=== PATIENT | female | born 1995 | race Caucasian/White ===

== ENCOUNTER 2018-06-29 21:17 | Emergency (ER) | payer MEDICAID ==
[2018-06-29] MEDS ORDERED: Sodium Chloride 0.9% 1,000 ML IV ONE (22:37)
[2018-06-29] MEDS ORDERED: Ondansetron 4 MG/2 ML SDV IVPUSH ONE (22:37)
--- NOTE | 2018-06-29 22:38 | EDM.PDOC ---
ED HPI GENERAL MEDICAL PROBLEM - General Chief Complaint: MACHINE MAINTENANCE MECHANIC Problem Stated Complaint: PT 17 WKS AND VOMITING Time Seen by Provider: 06/29/18 22:38 Source of Information: Reports: Patient - History of Present Illness INITIAL COMMENTS - FREE TEXT/NARRATIVE: HISTORY AND PHYSICAL: History of present illness: [Patient follows with Dr. Silvia mitchell, her next appointment is next week on the She has had been vomiting over the last week and states she is unable to keep liquids down there is concerned she may be losing weight she also follows in [place] She has nausea but she is able to keep down ice water at this time no fever chills sweats no chest pain shortness breath headache dizziness palpitation no bowel or urine symptoms ] Patient denies low back pain bleeding spotting or vaginal discharge, she was treated for Chlamydia he she is recently Review of systems: As per history of present illness and below otherwise all systems reviewed and negative. Past medical history: As per history of present illness and as reviewed below otherwise noncontributory. Surgical history: As per history of present illness and as reviewed below otherwise noncontributory. Social history: No reported history of drug or alcohol abuse. Family history: As per history of present illness and as reviewed below otherwise noncontributory. Physical exam: HEENT: Atraumatic, normocephalic, pupils reactive, negative for conjunctival pallor or scleral icterus, mucous membranes moist, throat clear, neck supple, nontender, trachea midline. Lungs: Clear to auscultation, breath sounds equal bilaterally, chest nontender. Heart: S1S2, regular, negative for clicks, rubs, or JVD. Abdomen: Soft, nondistended, nontender. Negative for masses or hepatosplenomegaly. Negative for costovertebral tenderness. Pelvis: Stable nontender. Genitourinary: Deferred. Rectal: Deferred. Extremities: Atraumatic, negative for cords or calf pain. Neurovascular unremarkable. Neuro: Awake, alert, oriented. Cranial nerves II through XII unremarkable. Cerebellum unremarkable. Motor and sensory unremarkable throughout. Exam nonfocal. Diagnostics: [UA ] Therapeutics: [Normal saline Zofran ]GI cocktail Impression: [] 17 weeks nausea/vomiting Definitive disposition and diagnosis as appropriate pending reevaluation and review of above. 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, , Therapeutic Psychiatric History: Reports: Anxiety - Infectious Disease History Infectious Disease History: Reports: Chicken Pox Social & Family History - Tobacco Use Smoking Status *Q: Never Smoker - Caffeine Use Caffeine Use: Reports: None - Recreational Drug Use Recreational Drug Use: No ED ROS GENERAL - Review of Systems Review Of Systems: See Below ED EXAM, GENERAL - Physical Exam Exam: See Below Course - Vital Signs Last Recorded V/S: Last Vital Signs Temp 96.8 F 06/29/18 21:55 Pulse 134 H 06/29/18 21:55 Resp 18 06/29/18 21:55 BP 148/61 H 06/29/18 21:55 Pulse Ox 94 L 06/29/18 21:55 - Orders/Labs/Meds Orders: Active Orders 24 hr Category Date Time Status UA W/MICROSCOPIC [URIN] Stat Lab 06/29/18 22:37 Ordered Sodium Chloride 0.9% [Normal Saline] 1,000 ml Med 06/29/18 22:37 Active IV STAT Medication Orders Sodium Chloride (Normal Saline) 1,000 mls @ 999 mls/hr IV STAT ONE Stop: 06/29/18 23:37 Meds: Medications Generic Name Dose Route Start Last Admin Trade Name Freq PRN Reason Stop Dose Admin Sodium Chloride 1,000 mls @ 999 mls/hr 06/29/18 22:37 Normal Saline IV 06/29/18 23:37 STAT ONE Discontinued Medications Generic Name Dose Route Start Last Admin Trade Name Freq PRN Reason Stop Dose Admin Al Hydroxide/Mg Hydroxide 15 0 ml 06/29/18 22:50 ml/ Metoclopramide HCl 5 mg/ PO 06/29/18 22:51 Lidocaine HCl 5 ml ONETIME ONE Ondansetron HCl 8 mg 06/29/18 22:37 Zofran IVPUSH 06/29/18 22:38 ONETIME ONE Departure - Departure Time of Disposition: 22:59 Disposition: Home, Self-Care 01 Condition: Good Clinical Impression: Vomiting during - Discharge Information Referrals: PCP,None [Primary Care Provider] - Forms: ED Department Discharge Additional Instructions: The following information is given to patients seen in the emergency department who are being discharged to home. This information is to outline your options for follow-up care. We provide all patients seen in our emergency department with a follow-up referral. The need for follow-up, as well as the timing and circumstances, are variable depending upon the specifics of your emergency department visit. If you don't have a primary care physician on staff, we will provide you with a referral. We always advise you to contact your personal physician following an emergency department visit to inform them of the circumstance of the visit and for follow-up with them and/or the need for any referrals to a consulting specialist. The emergency department will also refer you to a specialist when appropriate. This referral assures that you have the opportunity for follow-up care with a specialist. All of these measure are taken in an effort to provide you with optimal care, which includes your follow-up. Under all circumstances we always encourage you to contact your private physician who remains a resource for coordinating your care. When calling for follow-up care, please make the office aware that this follow-up is from your recent emergency room visit. If for any reason you are refused follow-up, please contact the [facility] emergency department at and asked to speak to the emergency department charge nurse. - My Orders Last 24 Hours: My Active Orders 06/29/18 22:37 UA W/MICROSCOPIC [URIN] Stat Sodium Chloride 0.9% [Normal Saline] 1,000 ml IV STAT - Assessment/Plan Last 24 Hours: My Active Orders 06/29/18 22:37 UA W/MICROSCOPIC [URIN] Stat Sodium Chloride 0.9% [Normal Saline] 1,000 ml IV STAT
[2018-06-29] MEDS ORDERED: Alum Hydrox/Mag Hydrox/Simeth 15 ML, Metoclopramide 5 MG, Lidocaine 2% 5 ML PO ONE ×3 (22:50)
[2018-06-29] MEDS ORDERED: Metoclopramide 10 MG/2 ML SDV ONE (23:06)
== END 2018-06-30 00:40 | disposition home or self-care (01) ==
LOC: MW.ED 21:17
DX: O21.9 Vomiting of pregnancy, unspecified (principal); Z3A.17 17 weeks gestation of pregnancy; Z79.899 Other long term (current) drug therapy
CPT/HCPCS: 96361; 96374; 99283; A9270; J2405; J7040

== ENCOUNTER 2018-10-23 18:09 | Emergency (ER) | payer MEDICAID ==
--- NOTE | 2018-10-23 18:21 | EDM.PDOC ---
ED HPI GENERAL MEDICAL PROBLEM - General Chief Complaint: Gastrointestinal Problem Stated Complaint: VOMTTING Time Seen by Provider: 10/23/18 18:20 Source of Information: Reports: Patient History Limitations: Reports: No Limitations - History of Present Illness INITIAL COMMENTS - FREE TEXT/NARRATIVE: HISTORY AND PHYSICAL: History of present illness: Patient is a 23-year-old female who presents to the emergency room with complaints of nausea, vomiting and fatigue in . Patient states she was diagnosed with a UTI last Thursday (10/15/18) but has not yet filled her antibiotic. She states she has had nausea and vomiting which approximately 1 week ago. Mom is concerned as she has been complaining of fatigue and generally not feeling well over the weekend. Patient denies any fever, chills, headache, change in vision, syncope or near syncope. Denies any chest pain, back pain, shortness of breath or cough. Denies any abdominal pain, pelvic pain, vaginal bleeding/discharge, diarrhea, constipation or dysuria. Has not noted any blood in urine or stool. Patient has been eating and drinking appropriately. , P:0. Unsure of LMP end of February/early March. She is currently 34 weeks (per medical record). Dr Swanson is primary OBGYN Review of systems: As per history of present illness and below otherwise all systems reviewed and negative. Past medical history: As per history of present illness and as reviewed below otherwise noncontributory. Surgical history: As per history of present illness and as reviewed below otherwise noncontributory. Social history: See social history for further information Family history: As per history of present illness and as reviewed below otherwise noncontributory. Physical exam: General: Well-developed and well-nourished 23-year-old female. Alert and oriented. Appears drowsy, but interacts appropriately. Nontoxic appearing and in no acute distress. HEENT: Atraumatic, normocephalic, pupils equal and reactive bilaterally, negative for conjunctival pallor or scleral icterus, mucous membranes moist, TMs normal bilaterally, throat clear, neck supple, nontender, trachea midline. No drooling or trismus noted. No meningeal signs. No hot potato voice noted. Lungs: Clear to auscultation, breath sounds equal bilaterally, chest nontender. Heart: S1S2, regular rate and rhythm without overt murmur Abdomen: Soft, abdomen, nontender. Negative for costovertebral tenderness. Pelvis: Stable nontender. Genitourinary: Deferred. Rectal: Deferred. Skin: Intact, warm, dry. No lesions or rashes noted. Extremities: Atraumatic, moves all extremities per self without difficulty or deficits, negative for cords or calf pain. Neurovascular unremarkable. Neuro: Awake, alert, oriented. Cranial nerves II through XII unremarkable. Cerebellum unremarkable. Motor and sensory unremarkable throughout. Exam nonfocal. Notes: 10/08/2018: Ultrasound shows a single living IUP Today's FHT 140-150's. Initially upon the triage assessment the patient stated she was but did not state how far along she was. At the end of the evaluation and digging through medical records shows she is approximately 34 weeks . We'll have the patient go to OB for further evaluation and management of her concerns and complaints today. Her physical examination is within normal limits and vital signs are stable. OB is aware that labs have been drawn; results are pending. Diagnostics: CBC, CMP, UA Therapeutics: IV fluids, Zofran Impression: Nausea and Vomiting in Plan: To OB for further evaluation and management Definitive disposition and diagnosis as appropriate pending reevaluation and review of above. 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 ED EXAM, GI/ABD - Physical Exam Exam: See Below (See dictation) Course - Vital Signs Last Recorded V/S: Last Vital Signs Temp 97.6 F 10/23/18 18:31 Pulse 118 H 10/23/18 19:10 Resp 20 10/23/18 19:10 BP 112/68 10/23/18 19:10 Pulse Ox 95 10/23/18 19:10 - Orders/Labs/Meds Orders: Active Orders 24 hr Category Date Time Status Heart Tones [ Heart Rate] [RC] Click to Edit Care 10/23/18 18:22 Active DRUG SCREEN, URINE [URCHEM] Stat Lab 10/23/18 18:38 Ordered UA RFX BRIDGER AND CULT IF INDIC [URIN] Stat Lab 10/23/18 18:22 Ordered Sodium Chloride 0.9% with KCl [Normal Saline with 40 Med 10/23/18 20:15 Active mEq KCl] 1,000 ml IV ASDIRECTED Medication Orders Potassium Chloride/Sodium Chloride (Normal Saline With 40 Meq Kcl) 1,000 mls @ 250 mls/hr IV ASDIRECTED IZA Labs: Laboratory Tests 10/23/18 10/23/18 10/23/18 Range/Units 18:45 18:45 19:00 WBC 7.72 (4.0-11.0) K/uL RBC 4.32 (4.30-5.90) M/uL Hgb 13.8 (12.0-16.0) g/dL Hct 39.7 (36.0-46.0) % MCV 91.9 (80.0-98.0) fL MCH 31.9 (27.0-32.0) pg MCHC 34.8 (31.0-37.0) g/dL RDW Std Deviation 44.5 (28.0-62.0) fl RDW Coeff of Dilcia 13 (11.0-15.0) % Plt Count 354 (150-400) K/uL MPV 11.30 (7.40-12.00) fL Neut % (Auto) 74.1 (48.0-80.0) % Lymph % (Auto) 13.9 L (16.0-40.0) % [place] % (Auto) 11.9 (0.0-15.0) % Eos % (Auto) 0.0 (0.0-7.0) % Baso % (Auto) 0.1 (0.0-1.5) % Neut # (Auto) 5.7 (1.4-5.7) K/uL Lymph # (Auto) 1.1 (0.6-2.4) K/uL [place] # (Auto) 0.9 H (0.0-0.8) K/uL Eos # (Auto) 0.0 (0.0-0.7) K/uL Baso # (Auto) 0.0 (0.0-0.1) K/uL Nucleated RBC % 0.0 /100WBC Nucleated RBCs # 0 K/uL Lactate (0.20-2.00) mmol/L Sodium 130 L (136-145) mmol/L Potassium 1.8 L* (3.5-5.1) mmol/L Chloride 74 L (98-107) mmol/L Carbon Dioxide 43.4 H (21.0-32.0) mmol/L BUN 35 H (7.0-18.0) mg/dL Creatinine 3.1 H (0.6-1.0) mg/dL Est Cr Clr Drug Dosing TNP Estimated GFR (MDRD) 18.8 ml/min Glucose 125 H (74-106) mg/dL Calcium 11.0 H (8.5-10.1) mg/dL Total Bilirubin 1.6 H (0.2-1.0) mg/dL AST 212 H (15-37) IU/L ALT 269 H (14-63) IU/L Alkaline Phosphatase 164 H (46-116) U/L Total Protein 8.0 (6.4-8.2) g/dL Albumin 2.9 L (3.4-5.0) g/dL Globulin 5.1 H (2.6-4.0) g/dL Albumin/Globulin Ratio 0.6 L (0.9-1.6) Meds: Medications Generic Name Dose Route Start Last Admin Trade Name Freq PRN Reason Stop Dose Admin Potassium Chloride/Sodium Chloride 1,000 mls @ 250 mls/hr 10/23/18 20:15 Normal Saline With 40 Meq Kcl IV ASDIRECTED IZA Discontinued Medications Generic Name Dose Route Start Last Admin Trade Name Freq PRN Reason Stop Dose Admin Sodium Chloride 1,000 mls @ 999 mls/hr 10/23/18 18:22 10/23/18 18:51 Normal Saline IV 10/23/18 19:22 999 mls/hr STAT ONE Administration Ondansetron HCl 4 mg 10/23/18 18:22 10/23/18 18:51 Zofran IVPUSH 10/23/18 18:23 4 mg ONETIME ONE Administration Departure - Departure Time of Disposition: 18:35 Disposition: Still A Patient 30 Clinical Impression: Vomiting during - Discharge Information Referrals: PCP,None [Primary Care Provider] - Forms: ED Department Discharge - My Orders Last 24 Hours: My Active Orders 10/23/18 18:22 Heart Tones [ Heart Rate] [RC] Click to Edit UA RFX BRIDGER AND CULT IF INDIC [URIN] Stat 10/23/18 18:38 DRUG SCREEN, URINE [URCHEM] Stat - Assessment/Plan Last 24 Hours: My Active Orders 10/23/18 18:22 Heart Tones [ Heart Rate] [RC] Click to Edit UA RFX BRIDGER AND CULT IF INDIC [URIN] Stat 10/23/18 18:38 DRUG SCREEN, URINE [URCHEM] Stat
[2018-10-23] MEDS ORDERED: Ondansetron 4 MG/2 ML SDV IVPUSH ONE (18:22)
[2018-10-23] MEDS ORDERED: Sodium Chloride 0.9% 1,000 ML IV ONE (18:22)
[2018-10-23 19:18] LABS: CHLORIDE,CL 74 mmol/L (98-107); SODIUM,NA 130 mmol/L (136-145)
[2018-10-23] MEDS ORDERED: Sodium Chloride 0.9% with KCl 1,000 ML IV SCH (20:15)
== END 2018-10-23 19:15 | disposition still patient (30) ==
LOC: MW.ED 18:09
DX: O21.2 Late vomiting of pregnancy (principal); Z3A.34 34 weeks gestation of pregnancy
CPT/HCPCS: 36415; 80053; 83605; 85025; 96374; 99284; J2405; J3480; J7040

== ENCOUNTER 2021-09-22 21:20 | Emergency (ER) | payer SELFPAY ==
[2021-09-22] MEDS ORDERED: Ondansetron 4 MG Tab.DIS PO STA (22:56)
[2021-09-22] MEDS ORDERED: Sodium Chloride 0.9% 1,000 ML IV ONE (23:52)
[2021-09-22] MEDS ORDERED: Ondansetron 4 MG/2 ML SDV IVPUSH ONE (23:52)
[2021-09-23] MEDS ORDERED: Pantoprazole 40 MG in Sodium Chloride 0.9% 10 ML IVPUSH STA (01:22)
[2021-09-23 01:29] LABS: BLOOD UREA NITROGEN,BUN 24 mg/dL (7.0-18.0); CARBON DIOXIDE,CO2 33.7 mmol/L (21.0-32.0); CHLORIDE,CL 90 mmol/L (98-107); GLUCOSE RANDOM 156 mg/dL (74-106); LIPASE 161 U/L (73-393); SODIUM,NA 131 mmol/L (136-145)
[2021-09-23] MEDS ORDERED: Potassium Chloride 20 MEQ Tab.ER PO ONE (01:35)
== END 2021-09-23 02:25 | disposition home or self-care (01) ==
LOC: MW.ED 21:20
DX: K29.70 Gastritis, unspecified, without bleeding (principal)
CPT/HCPCS: 36415; 80053; 81001; 81025; 83690; 85025; 96374; 96375; 99284; A9270; C9113; J2405; J3490; J7030; 99282